=== PATIENT | female | born 1960 | race Caucasian/White ===

== ENCOUNTER 2022-10-07 09:33 | Emergency (ER) | payer BC ==
[~2022-10-07] VITALS: Ht 157.5 cm; Wt 66.7 kg
[2022-10-07 09:39] VITALS: BP_SYST 136
--- NOTE | 2022-10-07 09:44 | NUR ---
PT TRIAGED TO [facility], INSTRUCTED THAT MAIN ED AT [facility] WITH A WAIT. PT INSTRUCTED TO NOTIFY RN OF ANY CHANGES IN CONDITION. PT STATUS STABLE, NO DISTRESS. BLEEDING CONTROLLED
--- NOTE | 2022-10-07 09:50 | NUR ---
PT STATES THAT SHE DOESNT WANT TO BE SEEN BY THE MD, STATES THAT THE INITIAL BLEEDING "JUST FREAKED HER OUT" AND THE CUT ISNT VERY DEEP. STATES INTENT TO WASH AREA THOROUGHLY AND APPLY ANTIBIOTIC OINTMENT
[2022-10-07 09:55] VITALS: BP_SYST 136
== END 2022-10-07 09:50 | disposition left against medical advice (07) ==
LOC: SED 09:33
DX: S61.213A Laceration without foreign body of left middle finger without damage to nail, initial encounter (principal); Z53.21 Procedure and treatment not carried out due to patient leaving prior to being seen by health care provider; W26.0XXA Contact with knife, initial encounter; Y93.89 Activity, other specified; Y92.89 Other specified places as the place of occurrence of the external cause; Y99.8 Other external cause status